=== PATIENT | male | born 1980 | race Caucasian/White ===

== ENCOUNTER 2016-12-08 19:46 | Emergency (ER) | payer SELFPAY ==
[~2016-12-08] VITALS: Ht 180.3 cm; Wt 116.0 kg
[~2016-12-08 19:46] MED LIST: HYDR-906 PO; IBUP-1542 PO
[2016-12-08 19:54] VITALS: Ht 180.3 cm; Wt 116.0 kg
[2016-12-09] MEDS ORDERED: CIPR500T4 PO (01:05)
== END 2016-12-08 21:01 | disposition left against medical advice (07) ==
LOC: FTE 19:46
DX: Z53.21 Procedure and treatment not carried out due to patient leaving prior to being seen by health care provider (principal)

== ENCOUNTER 2016-12-08 23:41 | Emergency (ER) | payer OTHER ==
[~2016-12-08] VITALS: Ht 180.3 cm; Wt 100.0 kg
[2016-12-08 23:43] VITALS: Ht 180.3 cm; Wt 100.0 kg
[2016-12-09 00:59] LABS: URINE BLOOD (Dip) POC 1+ (NEGATIVE)
[2016-12-09] MEDS ORDERED: AZITHROMYCIN 250 MG TAB PO ONE (01:00)
[2016-12-09] MEDS ORDERED: CEFTRIAXONE 250 MG INJ IM ONE (01:00)
[2016-12-09] MEDS ORDERED: CIPR500T4 PO (01:05)
--- NOTE | 2016-12-09 01:09 | ERD ---
ER Documentation Chief Complaint Date/Time DATE: 12/09/16 TIME: 01:07 Chief Complaint genital pain and discharge HPI This is a 36-year-old male who states he has had dysuria and increased urinary frequency and purulent white drainage from his penis for 2 days. He does admit to recent unprotected sex with one person. He denies fever. Denies any nausea or vomiting. He states he has had this before. ROS All systems reviewed and are negative except as per history of present illness. Medications Home Meds Active Scripts Ciprofloxacin Hcl* (Ciprofloxacin Hcl*) 500 Mg Tablet, 500 MG PO BID for 7 Days , TAB Prov:JOHANA MOSES PA-C 12/09/16 Hydrocodone/Acetaminophen (Meta 5-325 Tablet) 1 Each Tablet, 1 TAB PO Q6H Y for PAIN, #5 TAB Prov:MARGARITA MILLER MD 04/24/16 Ibuprofen* (Motrin*) 600 Mg Tab, 600 MG PO Q6, #15 TAB Prov:MARGARITA MILLER MD 04/24/16 Allergies Allergies: Coded Allergies: No Known Allergy (Unverified , 04/24/16) PMhx/Soc History of Surgery: No Anesthesia Reaction: No Hx Neurological Disorder: No Hx Respiratory Disorders: No Hx Cardiac Disorders: No Hx Psychiatric Problems: No Hx Miscellaneous Medical Probl: No Hx Alcohol Use: Yes (2 beers per day) 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) Hx Tobacco Use: Yes (1ppd) Smoking Status: Current every day smoker FmHx Family History: No diabetes Physical Exam Vitals Vital Signs Date Time Temp Pulse Resp B/P Pulse Ox O2 Delivery O2 Flow Rate FiO2 12/08/16 23:43 98.9 97 17 130/87 99 Physical Exam General: well developed, well nourished, alert, nontoxic, no distress Head: normocephalic, atraumatic Neck: Supple, nontender, no lymphadenopathy, no midline tenderness Respiratory: Clear to auscaultation bilaterally, speaks in full sentences, no use of accesory muscles or labored breathing, no rales, ronchi, or wheezing Cardiovascular: RRR, No murmurs GI: soft, non tender, non distended, negative murphys sign, negative mcburneys point tenderness, no cva tenderness bilaterally, no rebound or guarding Back: no midline tenderness, no step offs or bony abnormalities, sensation to light touch in tact gu: Patient declined Results 24 hrs Laboratory Tests Test 12/09/16 00:59 Bedside Urine pH (LAB) 7.0 Bedside Urine Protein (LAB) 1+ Bedside Urine Glucose (UA) Negative Bedside Urine Ketones (LAB) Negative Bedside Urine Blood 1+ Bedside Urine Nitrite (LAB) Negative Bedside Urine Leukocyte Esterase (L 3+ Current Medications Medications (Trade) Dose Ordered Sig/Tish Route PRN Reason Start Time Stop Time Status Last Admin Dose Admin Ceftriaxone Sodium (Rocephin) 250 mg ONCE ONCE IM 12/09/16 01:00 12/09/16 01:01 DC 12/09/16 00:51 Azithromycin (Zithromax) 1,000 mg ONCE ONCE PO 12/09/16 01:00 12/09/16 01:01 DC 12/09/16 00:50 Procedures/MDM Patient has urethritis. Urinalysis did show leukocytes and possible urinary tract infection and he will be treated with Cipro outpatient and he was given azithromycin and ceftriaxone here. He was instructed to abstain from any sexual activity until his symptoms resolved. He declined examination therefore physical exam is limited. Recommended this patient follow up with her primary care doctor within 48 hours or return to the emergency room for any worsening of symptoms. However this time I do believe there is suitable for outpatient management. I answered all their questions and they agreed with the plan and were discharged home. Departure Diagnosis: Primary Impression: Cystitis Additional Impression: Urethritis Condition: Stable Patient Instructions: Cystitis, Urethritis, Male (Gonorrhea) Additional Instructions: Call your primary care doctor TOMORROW for an appointment during the next 1-2 days.See the doctor sooner or return here if your condition worsens before your appointment time. JOHANA MOSES PA-C Dec 09, 2016 01:09
== END 2016-12-09 01:29 | disposition home or self-care (01) ==
LOC: FTE 23:41
DX: N30.90 Cystitis, unspecified without hematuria (principal); N34.2 Other urethritis; F17.210 Nicotine dependence, cigarettes, uncomplicated
CPT/HCPCS: 81003; 96372; J0696; Z7502; Z7610

== ENCOUNTER 2017-03-04 04:33 | Emergency (ER) | payer OTHER ==
[~2017-03-04] VITALS: Ht 175.3 cm; Wt 117.0 kg
[~2017-03-04 04:33] MED LIST changes: +CIPR500T4 PO
[2017-03-04 04:36] VITALS: Ht 175.3 cm; Wt 117.0 kg
[2017-03-04] MEDS ORDERED: IMIQ1CRE14 TOP (05:19)
[2017-03-04] MEDS ORDERED: CLOT30CR24 TOP (05:19)
--- NOTE | 2017-03-04 05:35 | ERD ---
ER Documentation Chief Complaint Date/Time DATE: 03/04/17 TIME: 05:29 Chief Complaint skin warts on both hands and both feet HPI 37-year-old male presents to emergency department for complaints of rash in the palmar aspect of the foot and plantar aspect of both hands. Patient noticed it is brownish discoloration, denies any itching. Patient noted some maceration of the skin in the plantar aspect of both feet. Patient denies any, members with the same type of symptoms. Patient denies any fever or chills. Patient denies any other rash in other parts of the body. ROS All systems reviewed and are negative except as per history of present illness. Medications Home Meds Active Scripts Clotrimazole* (Clotrimazole* AF) 1% - 30 Gm Cream.gm., 1 APPLIC TOP BID, #1 TUB Prov:MARGRET BURROWS NP 03/04/17 Imiquimod (Imiquimod) 5% Cream.pack, 1 PACKET TOP QHS, #90 EA 12 week supply Prov:MARGRET BURROWS NP 03/04/17 Ciprofloxacin Hcl* (Ciprofloxacin Hcl*) 500 Mg Tablet, 500 MG PO BID for 7 Days , TAB Prov:JOHANA MOSES PA-C 12/09/16 Hydrocodone/Acetaminophen ([place] 5-325 Tablet) 1 Each Tablet, 1 TAB PO Q6H Y for PAIN, #5 TAB Prov:MARGARITA MILLER MD 04/24/16 Ibuprofen* (Motrin*) 600 Mg Tab, 600 MG PO Q6, #15 TAB Prov:MARGARITA MILLER MD 04/24/16 Allergies Allergies: Coded Allergies: No Known Allergy (Unverified , 04/24/16) PMhx/Soc Medical and Surgical Hx: pt denies Medical Hx, pt denies Surgical Hx History of Surgery: No Anesthesia Reaction: No Hx Neurological Disorder: No Hx Respiratory Disorders: No Hx Cardiac Disorders: No Hx Psychiatric Problems: No Hx Miscellaneous Medical Probl: No Hx Alcohol Use: Yes (2 beers per day) Hx Substance Use: No (used meth previously) Hx Tobacco Use: Yes (1ppd) Smoking Status: Current every day smoker FmHx Family History: No coronary disease, No diabetes, No other Physical Exam Vitals Vital Signs Date Time Temp Pulse Resp B/P Pulse Ox O2 Delivery O2 Flow Rate FiO2 03/04/17 04:36 97.4 97 20 122/84 99 Physical Exam GENERAL: The patient is well developed and appropriate for usual state of health, in no apparent distress. CHEST: Clear to auscultation bilaterally. There are no rales, wheezes or rhonchi. HEART: Regular rate and rhythm. No murmurs, clicks, rubs or gallops. No S3 or S4. ABDOMEN: Soft, nontender and nondistended. Good bowel sounds. No rebound or guarding. No gross peritonitis. No gross organomegaly or masses. No Suarez sign or McBurney point tenderness. BACK: No midline or flank tenderness. EXTREMITIES: Equal pulses bilaterally. There is no peripheral clubbing, cyanosis or edema. No focal swelling or erythema. Full range of motion. Grossly neurovascularly intact. NEURO: Alert and oriented. Cranial nerves 2-12 intact. Motor strength in all 4 extremities with 5/5 strength. Sensation grossly intact. Normal speech and gait. SKIN: Maculopapular rash brownish discoloration in the palmar aspect and plantar aspect of the upper and lower extremities. Noted macerated skin in the plantar aspect of both feet. He There is no apparent ecchymosis or petechia. The skin is warm and dry. HEMATOLOGIC AND LYMPHATIC: There is no evidence of excessive bruising or lymphedema. No gross cervical, axillary, or inguinal lymphadenopathy. Procedures/MDM Medical decision making: Patient symptoms consistent with skin warts, possibly stress related, to see a closing coordinator specialist for further evaluation possible removal or cauterization. Patient will be given Aldara cream to possibly the plan affected area for relief. No symptoms of any contagious rash. Patient also has tinea pedis on both feet. No symptoms of any urticaria. No symptoms of anaphylactic shock. No symptoms of any coagulopathies. Patient is advised to see internet marketing specialist for further evaluation. Follow with primary care doctor in 2-3 days. Return to emergency department for new worsening symptoms. Departure Diagnosis: Primary Impression: Warts Viral wart type: plantar Qualified Code: B07.0 - Plantar wart Additional Impression: Tinea pedis Laterality: bilateral Qualified Code: B35.3 - Tinea pedis of both feet Condition: Stable Patient Instructions: Athlete'S Foot, Warts, Non-Genital Referrals: COMMUNITY CLINICS YOU HAVE RECEIVED A MEDICAL SCREENING EXAM AND THE RESULTS INDICATE THAT YOU DO NOT HAVE A CONDITION THAT REQUIRES URGENT TREATMENT IN THE EMERGENCY DEPARTMENT. FURTHER EVALUATION AND TREATMENT OF YOUR CONDITION CAN WAIT UNTIL YOU ARE SEEN IN YOUR DOCTORS OFFICE WITHIN THE NEXT 1-2 DAYS. IT IS YOUR RESPONSIBILITY TO MAKE AN APPOINTMENT FOR FOLOW-UP CARE. IF YOU HAVE A PRIMARY DOCTOR --you should call your primary doctor and schedule an appointment IF YOU DO NOT HAVE A PRIMARY DOCTOR YOU CAN CALL OUR PHYSICIAN REFERRAL HOTLINE AT IF YOU CAN NOT AFFORD TO SEE A PHYSICIAN YOU CAN CHOSE FROM THE FOLLOWING [facility] [address] [facility] [address] [facility] [address] [facility] [address] [facility] [address] [facility] [address] [facility]. [facility] [address] [facility]. [facility] YOU HAVE RECEIVED A MEDICAL SCREENING EXAM AND THE RESULTS INDICATE THAT YOU DO NOT HAVE A CONDITION THAT REQUIRES URGENT TREATMENT IN THE EMERGENCY DEPARTMENT. FURTHER EVALUATION AND TREATMENT OF YOUR CONDITION CAN WAIT UNTIL YOU ARE SEEN IN YOUR DOCTORS OFFICE WITHIN THE NEXT 1-2 DAYS. IT IS YOUR RESPONSIBILITY TO MAKE AN APPOINTMENT FOR FOLOW-UP CARE. IF YOU HAVE A PRIMARY DOCTOR --you should call your primary doctor and schedule and appointment IF YOU DO NOT HAVE A PRIMARY DOCTOR YOU CAN CALL OUR PHYSICIAN REFERRAL HOTLINE AT . IF YOU CAN NOT AFFORD TO SEE A PHYSICIAN YOU CAN CHOSE FROM THE FOLLOWING [facility] INSTITUTIONS: [facility] [address] [place] [address] [facility] [address] [place] [address] [facility] [address] [place] [address] MARGRET BURROWS NP Mar 04, 2017 05:35
== END 2017-03-04 05:35 | disposition home or self-care (01) ==
LOC: FTE 04:33
DX: B07.0 Plantar wart (principal); B35.3 Tinea pedis; F17.210 Nicotine dependence, cigarettes, uncomplicated
CPT/HCPCS: 99284

== ENCOUNTER 2017-03-16 10:00 | Emergency (ER) | payer OTHER ==
[~2017-03-16] VITALS: Ht 180.3 cm; Wt 116.5 kg
[~2017-03-16 10:00] MED LIST changes: +CLOT30CR24 TOP; +IMIQ1CRE14 TOP
[2017-03-16 10:05] VITALS: Ht 180.3 cm; Wt 116.5 kg
[2017-03-16] MEDS ORDERED: PRED20TA PO (10:49)
[2017-03-16] MEDS ORDERED: HC30CR25 TOP (10:49)
--- NOTE | 2017-03-16 11:17 | ERD ---
ER Documentation Chief Complaint Date/Time DATE: 03/16/17 TIME: 11:12 Chief Complaint RASH ON BOTH UPPER AND LOWER EXTREMITIES HPI Patient is a 37-year-old male with no past medical history who presents to the ED with rash on his hands and arms and legs for 2 weeks. Patient states that he was here on 03/04/17 with a rash on his hands and was diagnosed with warts. He states that the cream that was given to him helped minimally however he states that he has a mild rash on his arms and legs. Denies fever or chills. Denies recent travel. Denies change in food or hygiene products or medicine. Patient does not take any prescription medicines. States that it is slightly itchy but not painful. Denies fever or chills. Denies chest pain or cough or shortness of breath. Patient states that he has been having difficulty with finding a job. States that he is currently unemployed. Denies suicidal or homicidal ideations. No other complaints. ROS All systems reviewed and are negative except as per history of present illness. Medications Home Meds Active Scripts Hydrocortisone* Topical (Hydrocortisone* Topical) 2.5%-28.3 Gm Cream..g., 1 APPLIC TOP BID, #1 TUB Prov:NIKO COLE PA-C 03/16/17 Prednisone* (Prednisone*) 20 Mg Tab, 40 MG PO DAILY for 4 Days, TAB Prov:NIKO COLE PA-C 03/16/17 Clotrimazole* (Clotrimazole* AF) 1% - 30 Gm Cream.gm., 1 APPLIC TOP BID, #1 TUB Prov:MARGRET BURROWS NP 03/04/17 Imiquimod (Imiquimod) 5% Cream.pack, 1 PACKET TOP QHS, #90 EA 12 week supply Prov:MARGRET BURROWS NP 03/04/17 Ciprofloxacin Hcl* (Ciprofloxacin Hcl*) 500 Mg Tablet, 500 MG PO BID for 7 Days , TAB Prov:JOHANA MOSES PA-C 12/09/16 Hydrocodone/Acetaminophen ([place] 5-325 Tablet) 1 Each Tablet, 1 TAB PO Q6H Y for PAIN, #5 TAB Prov:MARGARITA MILLER MD 04/24/16 Ibuprofen* (Motrin*) 600 Mg Tab, 600 MG PO Q6, #15 TAB Prov:MARGARITA MILLER MD 04/24/16 Allergies Allergies: Coded Allergies: No Known Allergy (Unverified , 04/24/16) PMhx/Soc History of Surgery: No Anesthesia Reaction: No Hx Neurological Disorder: No Hx Respiratory Disorders: No Hx Cardiac Disorders: No Hx Psychiatric Problems: No Hx Miscellaneous Medical Probl: No Hx Alcohol Use: Yes (2 beers per day) Hx Substance Use: No (used meth previously) Hx Tobacco Use: Yes (1ppd) FmHx Family History: No coronary disease, No diabetes, No other Physical Exam Vitals Vital Signs Date Time Temp Pulse Resp B/P Pulse Ox O2 Delivery O2 Flow Rate FiO2 03/16/17 10:05 98.0 107 18 134/88 96 Physical Exam GENERAL: Well-developed, well-nourished male. Appears in no acute distress. HEAD: Normocephalic, atraumatic. EYES: Pupils are equally reactive bilaterally. EOMs grossly intact. No conjunctival erythema. ENT: Moist mucous membranes. No uvula deviation. No kissing tonsils. No exudates. NECK: Supple. No lymphadenopathy or thyromegaly. No meningismus. negative kernig. negative brudinski. LUNG: Clear to auscultation bilaterally. No rhonchi, wheezing, rales or coarse breath sounds. HEART: Regular rate and rhythm. No murmurs, rubs or gallops. Extremities: Equal pulses bilaterally. No peripheral clubbing, cyanosis or edema. No unilateral leg swelling. NEUROLOGIC: Alert and oriented. Moving all four extremities. 5/5 strength in all extremities. Normal speech. Steady gait. SKIN: Normal color. Warm and dry. Erythematous macular rash on bilateral legs and arms. Multiple warts on hands.. Capillary refill < 2 seconds Procedures/MDM ER COURSE: I kept the patient and/or family informed of laboratory and diagnostic imaging results throughout the emergency room course. MEDICAL DECISION MAKING: This is a 37-year-old male who presents with rash 2 weeks. Vital signs were reviewed. Patient is afebrile. Patient is not hypoxic. Patient is not toxic or ill-appearing. Patient's rash is of unknown etiology. Patient will be given prednisone and hydrocortisone cream for rash. I did explain to patient that his rash could be allergic in etiology versus autoimmune. Patient recent STD and HIV check was negative. Low suspicion for STD. No blood work or urine will be done here in the ED. I offered patient social service consult here in the ED. However patient refused. I stated that patient could be given resources regarding employment health and other community resources. However patient refused and only wanted treatment for his symptoms. Low suspicion for necrotizing fasciitis, SJS, toxic epidermal necrolysis, Kawasaki, erythema multiforme, gangrene, scarlet fever, meningococcemia, sepsis, anaphylaxis, sepsis, deep space infection, or foreign body. Low suspicion for ACS, PE, AAA, dissection, DVT DISCHARGE: At this time, patient is stable for discharge and outpatient management with no new complaints during the ER course. Patient was sent home with prednisone and hydrocortisone cream. I did explain to patient that patient can return here to the ED to receive resources. Patient will be discharged home with instructions to recheck for new or worsening symptoms such as fever, nausea, weakness, LOC and to follow up with primary care in the next 1-2 days. Patient was advised to return to the ER for any new or worsening symptoms. Plan was discussed and patient and/or family understands and agrees. Home instructions were given. Departure Diagnosis: Primary Impression: Rash Condition: Stable Patient Instructions: Heat Rash [Child] Referrals: COMMUNITY CLINICS YOU HAVE RECEIVED A MEDICAL SCREENING EXAM AND THE RESULTS INDICATE THAT YOU DO NOT HAVE A CONDITION THAT REQUIRES URGENT TREATMENT IN THE EMERGENCY DEPARTMENT. FURTHER EVALUATION AND TREATMENT OF YOUR CONDITION CAN WAIT UNTIL YOU ARE SEEN IN YOUR DOCTORS OFFICE WITHIN THE NEXT 1-2 DAYS. IT IS YOUR RESPONSIBILITY TO MAKE AN APPOINTMENT FOR FOLOW-UP CARE. IF YOU HAVE A PRIMARY DOCTOR --you should call your primary doctor and schedule an appointment IF YOU DO NOT HAVE A PRIMARY DOCTOR YOU CAN CALL OUR PHYSICIAN REFERRAL HOTLINE AT IF YOU CAN NOT AFFORD TO SEE A PHYSICIAN YOU CAN CHOSE FROM THE FOLLOWING [facility] CLINICS [facility] [address] [facility] [address] [facility] [address] [facility] [address] [facility] [address] [facility]. [facility] [address] Additional Instructions: Call your primary care doctor TOMORROW for an appointment during the next 1-2 days.See the doctor sooner or return here if your condition worsens before your appointment time. NIKO COLE PA-C Mar 16, 2017 11:17
== END 2017-03-16 11:14 | disposition home or self-care (01) ==
LOC: FTE 10:00
DX: R21 Rash and other nonspecific skin eruption (principal); F17.210 Nicotine dependence, cigarettes, uncomplicated
CPT/HCPCS: 99283

== ENCOUNTER 2017-04-12 02:44 | Emergency (ER) | payer OTHER ==
[~2017-04-12] VITALS: Ht 182.9 cm; Wt 115.5 kg
[~2017-04-12 02:44] MED LIST changes: +HC30CR25 TOP; +PRED20TA PO
[2017-04-12 02:50] VITALS: Ht 182.9 cm; Wt 115.5 kg
[2017-04-12] MEDS ORDERED: KEN25O TOP (03:40)
--- NOTE | 2017-04-12 03:49 | ERA ---
ER Documentation Chief Complaint Date/Time DATE: 04/12/17 TIME: 03:43 Chief Complaint skin lesions on both palms HPI This is a 37-year-old male with a chief complaint of rash on hands. Described as "extremely itchy". Patient states has had the symptoms before that have had a moderate relief with hydrocortisone cream. Patient was treated for gonococcal /chlamydial infection with ceftriaxone and azithromycin 1 month ago, and states he has not had sexual intercourse since. Denies IV drug use, alcohol abuse, or possible environmental factors. No recent travel. No discharge from the penis, dysuria, hematuria, abdominal pain, nausea, fever, chills, headache or meningismus. No other complaints and describes no other associated manifestations. ROS All systems reviewed and are negative except as per history of present illness. Medications Home Meds Active Scripts Triamcinolone Acetonide* (Kenalog*) 0.025%-15GM Oint, 1 APPLIC TOP BID, #1 EA Prov:CELY BAKER PA-C 04/12/17 Hydrocortisone* Topical (Hydrocortisone* Topical) 2.5%-28.3 Gm Cream..g., 1 APPLIC TOP BID, #1 TUB Prov:NIKO COLE PA-C 03/16/17 Prednisone* (Prednisone*) 20 Mg Tab, 40 MG PO DAILY for 4 Days, TAB Prov:NIKO COLE PA-C 03/16/17 Clotrimazole* (Clotrimazole* AF) 1% - 30 Gm Cream.gm., 1 APPLIC TOP BID, #1 TUB Prov:MARGRET BURROWS NP 03/04/17 Imiquimod (Imiquimod) 5% Cream.pack, 1 PACKET TOP QHS, #90 EA 12 week supply Prov:MARGRET BURROWS NP 03/04/17 Ciprofloxacin Hcl* (Ciprofloxacin Hcl*) 500 Mg Tablet, 500 MG PO BID for 7 Days , TAB Prov:JOHANA MOSES PA-C 12/09/16 Hydrocodone/Acetaminophen ([place] 5-325 Tablet) 1 Each Tablet, 1 TAB PO Q6H Y for PAIN, #5 TAB Prov:MARGARITA MILLER MD 04/24/16 Ibuprofen* (Motrin*) 600 Mg Tab, 600 MG PO Q6, #15 TAB Prov:MARGARITA MILLER MD 04/24/16 Allergies Allergies: Coded Allergies: No Known Allergy (Unverified , 04/24/16) PMhx/Soc History of Surgery: No Anesthesia Reaction: No Hx Neurological Disorder: No Hx Respiratory Disorders: No Hx Cardiac Disorders: No Hx Psychiatric Problems: No Hx Miscellaneous Medical Probl: Yes (STD) Hx Alcohol Use: Yes (2 beers per day) Hx Substance Use: No (used meth previously) Hx Tobacco Use: Yes (1ppd) Smoking Status: Current every day smoker Physical Exam Vitals Vital Signs Date Time Temp Pulse Resp B/P Pulse Ox O2 Delivery O2 Flow Rate FiO2 04/12/17 02:50 97.8 96 20 137/89 99 Physical Exam Const: Healthy-appearing. Well-nourished. Well-developed. No acute distress. Skin: Nonfluctuant cysts skin colored to slightly darker nodules approximately 2-3 mm in diameter on the palms bilaterally with mild desquamation and excoriation visualized. Ext: No edema or palpable cord. Normal movement of all extremities grossly observed. Neur: Awake, alert and oriented x3. Neurovascularly intact bilaterally. Oral: No oral edema visualized. Mucous membranes moist and pink. Head: Normocephalic, Atraumatic. Eyes: Non-injected; No discharge. EOMI and JAYLEN bilaterally. Ears: Normal External Ears, EACs clear, TM normal bilaterally without erythema. Nose: Normal external nose; no discharge, or sinus tenderness. Neck: No cervical lymphadenopathy, masses or goiter palpated. ~ No meningismus. Pulm: Good air movement in upper and lower respiratory tracts. No dyspnea, stridor, tripoding or drooling. Clear to auscultation bilaterally. Cardio: Regular rate and rhythm; No murmurs, gallops or rubs auscultated. No JVD grossly observed. No cyanosis. Capillary refill less than 2 seconds. Abd: Soft, non tender, non distended. No guarding, masses. Normal bowel sounds. MS: Normal motor strength, normal tone with gross examination. Back: No midline, flank or CVA tenderness. Psych: Normal Mood and Affect. Procedures/MDM 37-year-old male presenting with a chief complaint of rash on hands bilaterally. Has used hydrocortisone cream with mild relief in the past. Has been treated for Neisseria gonorrhea and chlamydia trichomonas 1 month ago and has not been sexually active since. Denies IV drug use. Denies other symptoms of gonococcal infection. At this time of little suspicion for disseminated gonococcal infection, infective endocarditis, contact dermatitis, systemic or fungal involvement. Most likely diagnosis is dyshidrotic eczema versus a rash of unknown origin. Will prescribe triamcinolone ointment. Follow-up with dermatology has been advised. I have spoke with the patient regarding their condition and future management. They have verbally responded that they understand their status and treatment plan. The patients vitals are stable, and their current condition is appropriate for discharge. The patient will be given discharge instructions with return precautions. Departure Diagnosis: Primary Impression: Dermatitis, dyshidrotic Additional Impression: Rash Condition: Stable Patient Instructions: Atopic Dermatitis (Eczema) Referrals: CHRISTA SHAH MD,LENA GRAFF MD,CELY GAYTAN,EMMANUEL BRAY,JHON BUENROSTRO Additional Instructions: Follow up with your PCP within the next 1-3 days for a more thorough evaluation and a possible referral to a specialist. If you are unable to follow-up with PCP, contacts one of the dermatologists provided in this handout. Return the the emergency department immediately if symptoms worsen or change. If you have any questions regarding medications, ask your pharmacist or us before you leave. If any adverse reactions occur while taking your medications, discontinue the treatment and return to the emergency department immediately. Take your medications as directed, and complete the entire course of treatment. CELY BAKER PA-C Apr 12, 2017 03:49
== END 2017-04-12 03:52 | disposition home or self-care (01) ==
LOC: FTE 02:44
DX: L30.1 Dyshidrosis [pompholyx] (principal); R21 Rash and other nonspecific skin eruption; F17.210 Nicotine dependence, cigarettes, uncomplicated
CPT/HCPCS: 99283

== ENCOUNTER 2017-08-16 16:48 | Emergency (ER) | payer OTHER ==
[~2017-08-16] VITALS: Ht 180.3 cm; Wt 123.0 kg
[~2017-08-16 16:48] MED LIST changes: +KEN25O TOP
[2017-08-16 16:51] VITALS: Ht 180.3 cm; Wt 123.0 kg
[2017-08-16] MEDS ORDERED: LAM1CR24 TOP (18:53)
[2017-08-16] MEDS ORDERED: TRIA15CR55 TOP (18:53)
--- NOTE | 2017-08-16 18:57 | ERD ---
ER Documentation Chief Complaint Chief Complaint cough , cold symptoms and b/l foot pain HPI This 37-year-old male complains of a rash on his right foot worsening of last week. Is treated for rash in his left foot which resolved with unspecified cream. He also has productive cough for last 3 days. Denies fevers, history of diabetes, redness, or significant pain. ROS All systems reviewed and are negative except as per history of present illness. Medications Home Meds Active Scripts Triamcinolone Acetonide (Triamcinolone Acetonide) 0.1% - 15 Gm Cream.gm., 1 APPLIC TOP BID for 7 Days, #1 TUB Prov:MARGARITA MILLER MD 08/16/17 Terbinafine Hcl* (Lamisil*) 1% - 30 Gm Cr, 1 APPLIC TOP BID for 10 Days, #1 TUB Prov:MARGARITA MILLER MD 08/16/17 Triamcinolone Acetonide* (Kenalog*) 0.025%-15GM Oint, 1 APPLIC TOP BID, #1 EA Prov:CELY BAKER PA-C 04/12/17 Hydrocortisone* Topical (Hydrocortisone* Topical) 2.5%-28.3 Gm Cream..g., 1 APPLIC TOP BID, #1 TUB Prov:NIKO COLE PA-C 03/16/17 Prednisone* (Prednisone*) 20 Mg Tab, 40 MG PO DAILY for 4 Days, TAB Prov:NIKO COLE PA-C 03/16/17 Clotrimazole* (Clotrimazole* AF) 1% - 30 Gm Cream.gm., 1 APPLIC TOP BID, #1 TUB Prov:MARGRET BURROWS NP 03/04/17 Imiquimod (Imiquimod) 5% Cream.pack, 1 PACKET TOP QHS, #90 EA 12 week supply Prov:MARGRET BURROWS NP 03/04/17 Ciprofloxacin Hcl* (Ciprofloxacin Hcl*) 500 Mg Tablet, 500 MG PO BID for 7 Days , TAB Prov:JOHANA MOSES PA-C 12/09/16 Hydrocodone/Acetaminophen ([place] 5-325 Tablet) 1 Each Tablet, 1 TAB PO Q6H Y for PAIN, #5 TAB Prov:MARGARITA MILLER MD 04/24/16 Ibuprofen* (Motrin*) 600 Mg Tab, 600 MG PO Q6, #15 TAB Prov:MARGARITA MILLER MD 04/24/16 Allergies Allergies: Coded Allergies: No Known Allergy (Unverified , 04/24/16) PMhx/Soc Medical and Surgical Hx: pt denies Medical Hx History of Surgery: No Anesthesia Reaction: No Hx Neurological Disorder: No Hx Respiratory Disorders: No Hx Cardiac Disorders: No Hx Psychiatric Problems: No Hx Miscellaneous Medical Probl: Yes (STD) Hx Alcohol Use: Yes (2 beers per day) 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 Neck: Full range of motion..~ No meningismus. Resp: Clear to auscultation bilaterally Cardio: Regular rate and rhythm, no murmurs Abd: Soft, non tender, non distended. Normal bowel sounds Skin: No petechiae or purpura. There is scaling and peeling on the bottom of the right foot without erythema, discharge. There is a healing ring-shaped lesion on left ankle there is clinical appearance of resolving tinea. Back: No midline or flank tenderness Ext: No cyanosis, or edema Neur: Awake and alert Psych: Normal Mood and Affect Results 24 hrs Laboratory Tests Test 08/16/17 18:50 Bedside Glucose 85mg/dL [facility] Accu-Chek is 85. Patient has signs and symptoms of tinea pedis on the right foot as well as URI. Will be treated with Lamisil, triamcinolone and Phenergan DM for cough. He is advised to follow-up with primary doctor this week return to ER for new or worsening symptoms. There is no evidence of cellulitis, purpura, life-threatening rashes the patient should return for fevers, worsening redness, new worsening symptoms as directed. Appears to have a viral URI as well without signs or symptoms to suggest pneumonia, PE, respiratory distress, hypoxemia, acute coronary syndrome, CHF, additional emergent causes of presenting complaints. Departure Diagnosis: Primary Impression: Tinea pedis Laterality: right Qualified Code: B35.3 - Tinea pedis of right foot Additional Impression: Rash Condition: Stable Patient Instructions: Dermatitis, Non-Specific, Athlete'S Foot Additional Instructions: Recheck for new or worsening symptoms with primary care doctor. MARGARITA MILLER MD Aug 16, 2017 18:57
[2017-08-16] MEDS ORDERED: D-ME473S2 PO (18:58)
== END 2017-08-16 19:06 | disposition home or self-care (01) ==
LOC: FTE 16:48
DX: B35.3 Tinea pedis (principal); F17.210 Nicotine dependence, cigarettes, uncomplicated
CPT/HCPCS: 82962; Z7502; 99284

== ENCOUNTER 2018-02-16 06:24 | Emergency (ER) | END 2018-02-16 07:13 | disposition home or self-care (01) ==

== ENCOUNTER 2018-05-03 17:21 | Emergency (ER) | END 2018-05-03 20:05 | disposition home or self-care (01) ==

== ENCOUNTER 2018-12-18 17:38 | Emergency (ER) | payer OTHER ==
[~2018-12-18] VITALS: Wt 115.0 kg
[~2018-12-18 17:38] MED LIST changes: -CIPR500T4 PO; -CLOT30CR24 TOP; -HC30CR25 TOP; -HYDR-906 PO; -IMIQ1CRE14 TOP; -KEN25O TOP; -PRED20TA PO; +ZOF8 PO
[2018-12-18 17:40] VITALS: BP 125/87; PULSE 76; RESP 18
[2018-12-18] MEDS ORDERED: ONDANSETRON (ODT) 4 MG TAB ODT STA (19:17)
[2018-12-18] MEDS ORDERED: AZITHROMYCIN 500 MG TAB PO ONE (19:30)
[2018-12-18] MEDS ORDERED: PENICILLIN G BENZ 2.4 MIL UNIT SYG IM ONE (19:30)
--- NOTE | 2018-12-18 20:06 | ERD ---
ER Documentation Chief Complaint Chief Complaint BLISTER ON PENIS X 1 WEEK HPI Patient is a 38-year-old male with no medical problems who presents with a blister on his penis. The patient said that he was last sexually active in March. He said this blister started 1 week ago and is painless. He has no discharge from the penis. The patient has a primary doctor at the local clinic. ROS All systems reviewed and are negative except as per history of present illness. Medications Home Meds Active Scripts Ondansetron Hcl* (Zofran*) 8 Mg Tab, 8 MG PO Q6H PRN for NAUSEA AND OR VOMITING, #20 TAB Prov:RAMOS EAST MD 10/10/18 Ibuprofen* (Motrin*) 600 Mg Tab, 600 MG PO Q6H PRN for PAIN AND/OR INFLAMMATION, #30 TAB Prov:RAMOS EAST MD 10/10/18 Reported Medications Ibuprofen* (Ibuprofen*) 600 Mg Tablet, 600 MG PO Q6H PRN for PAIN, TAB 10/10/18 Allergies Allergies: Coded Allergies: No Known Allergy (Unverified , 10/10/18) PMhx/Soc History of Surgery: No Anesthesia Reaction: No Hx Neurological Disorder: No Hx Respiratory Disorders: No Hx Cardiac Disorders: No Hx Psychiatric Problems: No Hx Miscellaneous Medical Probl: Yes (STD) Hx Alcohol Use: Yes 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 Neck: Full range of motion. No meningismus. Resp: Clear to auscultation bilaterally Cardio: Regular rate and rhythm, no murmurs Abd: Soft, non tender, non distended. Normal bowel sounds Skin: No petechiae or rashes Back: No midline or flank tenderness Ext: No cyanosis, or edema Neur: Awake and alert : Patient has a painless chancre at the border between the foreskin and the glans penis which is approximately 1 cm in diameter and has the appearance of a syphilis lesion Results 24 hrs Current Medications Medications Dose Sig/Tish Start Time Status Last (Trade) Ordered Route PRN Stop Time Admin Dose Reason Admin 1,000 mg ONCE ONCE 12/18/18 DC 12/18/18 Azithromycin PO 19:30 19:27 (Zithromax) 12/18/18 19:31 Ondansetron 4 mg ONCE STAT 12/18/18 DC 12/18/18 HCl (Zofran ODT 19:17 19:27 Odt) 12/18/18 19:21 Penicillin 2,400,000 ONCE ONCE 12/18/18 DC 12/18/18 G units IM 19:30 19:43 Benzathine 12/18/18 19:31 (Bicillin La) Procedures/MDM Patient is a 38-year-old male presents with acute primary syphilis. The patient will be treated with penicillin 2,400,000 units IM. He will also be given Zithromax and Zofran. The patient will be discharged. He was instructed in safe sex practices. The patient can return for any worsening symptoms. Departure Diagnosis: Primary Impression: Syphilis Condition: Fair Patient Instructions: Syphilis Additional Instructions: Call your primary care doctor TOMORROW for an appointment during the next 1 WEEK.Tell the department secretary that you were referred from this facility.See the doctor sooner or return here if your condition worsens before your appointment time. MELECIO HUYNH MD Dec 18, 2018 20:06
== END 2018-12-18 19:50 | disposition home or self-care (01) ==
LOC: FTE 17:38
DX: A53.9 Syphilis, unspecified (principal); X58.XXXA Exposure to other specified factors, initial encounter; Y92.9 Unspecified place or not applicable; Z87.891 Personal history of nicotine dependence
CPT/HCPCS: 96372; J0561; Z7502; Z7610